=== PATIENT | male | born 1945 | race Caucasian/White ===

== ENCOUNTER 2018-10-28 15:13 | Observation (INO) ==
[2018-10-28] MEDS ORDERED: NS 1,000 ML IV ONE ×2 (15:50→16:33)
[2018-10-28 16:50] LABS: BASO# 0.04 X1000 (0.0-0.2); BASO% 0.3 % (0.0-0.8); EOS# 0.13 X1000 (0.0-0.7); EOS% 1.1 % (0.0-10.0); HEMATOCRIT 40.1 % (42.0-52.0); HEMOGLOBIN 13.2 g/dL (14.0-18.0); IMM GRAN# 0.05 X1000 (0.0-0.04); IMM GRAN% 0.4 % (0.0-0.5); LYMPH# 1.39 X1000 (1.2-3.4); LYMPH% 11.6 % (20.5-51.1); MCH 27.3 PG (27-31); MCHC 32.9 g/dL (33-37); MONO# 1.64 X1000 (0.11-0.59); MONO% 13.7 % (1.7-9.3); NEUT# 8.69 X1000 (1.4-6.5); NEUT% 72.9 % (42.2-75.2); PLT 208 X1000 (130-400); RBC 4.83 XMIL (4.7-6.1); WBC 11.94 X1000 (4.8-10.8)
[2018-10-28 17:02] LABS: BILIRUBIN URINE 2+ (NEGATIVE); BLOOD URINE TRACE (NEGATIVE); GLUCOSE URINE NEGATIVE (NEGATIVE); KETONE URINE 1+(Small) mg/dL (NEGATIVE); LEUKOCYTES URINE 1+ (NEGATIVE); NITRITE URINE POSITIVE (NEGATIVE); PH URINE 6.5; PROTEIN URINE 2+(100 mg/dL) mg/dL (NEGATIVE); UROBILINOGEN URINE 4 mg/dL
[2018-10-28 17:03] LABS: CLARITY VERY CLOUDY (CLEAR); COLOR YELLOW
[2018-10-28 17:04] LABS: URINE BACTERIA 2+ /HFP; URINE EPITHELIAL CELLS >10 /HPF (<10); URINE RBC <10 /HPF (<10); URINE YEAST NONE SEEN /HPF
[2018-10-28 17:05] LABS: ALBUMIN 3.8 g/dL (3.5-5.0); CALCIUM 8.4 mg/dL (8.8-10.2); CREATININE 2.1 mg/dL (0.7-1.2); POTASSIUM 4.2 mmol/L (3.5-5.1); TOTAL BILIRUBIN 1.2 mg/dL (0.20-1.00); TOTAL PROTEIN 6.4 g/dL (6.3-8.3); URINE CAST WAXY PRESENT /LPF; URINE CRYSTAL NONE SEEN /HPF; URINE SOURCE CLEAN CATCH
--- NOTE | 2018-10-28 18:11 | Diag Imaging Result Doc PS360 ---
EXAM: US ABDOMEN-COMPLETE - 10/28/2018 HISTORY: pain TECHNIQUE: Ultrasound abdomen COMPARISON: None. FINDINGS: There are no abnormalities of the liver or spleen identified. There is no ascites seen. The gallbladder is visualized and demonstrates no abnormalities. There is no evidence of gallstones. The technologist reports negative sonographic Lim's sign. The common bile duct is normal caliber at 4 mm. There are no abnormalities of the bilateral kidneys identified. The pancreas, abdominal aorta, and IVC are obscured by bowel gas artifacts. IMPRESSION: No visible abnormality. No evidence of gallstones. The pancreas, aorta, and IVC are obscured by bowel gas artifacts. Electronically signed by Luis Carlos Perez 10/28/2018 6:09 PM
--- NOTE | 2018-10-28 19:10 | PROVIDER DOCUMENTATION ---
This chart was entered by Sha Figueroa Scribe, acting as scribe for Aris Dahl MD. HPI-Abdominal Pain/GI Problem - History of Present Illness-ABD Nature of Presenting Problems: Patient is a 73 year old white male with history of diabetes and CAD (S/P ME,stents) who presented today with RLQ abdomen pain. <Lucas Peoples - Last Filed: 10/28/18 21:06> - General Source: patient - History of Present Illness-ABD Nature of Presenting Problems: Pt is a 73 y/o F presents to the ED with RLQ pain. Pt says he has been helping his brother with some electrical work and thinks he has pulled a muscle. Pain Radiation: reports: RLQ Quality of Pain: reports: aching Severity in ED: reports: mild Onset/Duration: reports: 2 days ago Timing: reports: still present Activities at Onset: reports: moderate activity Exposure to sick contacts?: No Modifying Factors: improves with: nothing Associated Symptoms: denies: cough, fever/chills, nausea Last BM: unsure <Aris Dahl - Last Filed: 10/29/18 13:45> - General Chief Complaint: Abdominal Pain Stated Complaint: AB PAIN Time Seen by Provider: 10/28/18 15:50 Allergies/Adverse Reactions: Patient Allergies Allergy/AdvReac Type Severity Reaction Status Date / Time No Known Allergies Allergy Verified 10/28/18 15:38 Home Medications: Home Medication List Medication Instructions Recorded Confirmed Last Taken Type Aspirin 81 mg PO DAILY 10/28/18 10/28/18 Unknown History Atorvastatin Calcium 80 mg PO DAILY 10/28/18 10/28/18 Unknown History Clopidogrel Bisulfate [Clopidogrel] 75 mg PO DAILY 10/28/18 10/28/18 Unknown History Lisinopril 5 mg PO DAILY 10/28/18 10/28/18 Unknown History Metoprolol Tartrate 50 mg PO BID 10/28/18 10/28/18 Unknown History Pyridostigmine [Mestinon] 30 mg PO 4XDAY 10/28/18 10/28/18 Unknown History Review of Systems - Adult - REVIEW OF SYSTEMS - ADULT Constitutional: denies: chills, fever Eyes: reports: no symptoms reported Ears, Nose, Mouth & Throat: reports: no symptoms reported Cardiovascular: reports: no symptoms reported Respiratory: denies: cough, shortness of breath, wheezing Gastrointestinal: reports: abdominal pain. denies: constipation, diarrhea, nausea, vomiting Genitourinary: denies: dysuria, discharge Musculoskeletal: denies: back pain, neck pain Integumentary: reports: no symptoms reported Neurological: denies: dizziness/vertigo, headache/migraines Psychiatric: reports: no symptoms reported Endocrine: reports: no symptoms reported Hematologic/Lymphatic: reports: no symptoms reported Allergic/Immunologic: reports: no symptoms reported All Other Systems: Reviewed and Negative <Aris Dahl - Last Filed: 10/29/18 13:45> Past History - Adult - PAST MEDICAL HISTORY-ADULT Review of Records: reports: Old Records Reviewed, Nursing Assessment Review, M edications Reviewed - SOCIAL HISTORY Smoking: non-smoker, quit greater than 1 year Substance Use: none/never Living Situation: family <Aris Dahl - Last Filed: 10/29/18 13:45> Physical Exam-General - PHYSICAL EXAM-ADULT Initial Vital Signs Reviewed: Yes - CONSTITUTIONAL General Appearance: appears well, alert, no apparent distress - EYES Eyes: PERRL/EOMI, pink conjunctivae - HEAD, EARS, NOSE, MOUTH & THROAT HENMT: moist mucous membranes, normal ENT inspection, pharynx normal - NECK Neck: non-tender, full range of motion, supple, normal inspection - RESPIRATORY Respiratory: lungs clear, normal breath sounds, no pleuratic chest pain, no respiratory distress, no accessory muscle use - CARDIOVASCULAR Cardiovascular: normal peripheral pulses, regular rate, rhythm - GASTROINTESTINAL (ABDOMEN) Abdominal Exam: normal bowel sounds, soft, tenderness (RLQ), other (mulitple small subcutaneous hematomas) - MUSCULOSKELETAL Back Exam: normal inspection, no CVA tenderness, no vertebral tenderness Extremity: normal range of motion, non-tender, normal gait, normal inspection - SKIN Integumentary: normal color, normal turgor, warm/dry - NEUROLOGIC Neurologic: grossly normal, no motor/sensory deficits - PSYCHIATRIC Psych/Mental Status: normal mood/affect, normal thought content, normal thought process, oriented x 3 <Aris Dahl - Last Filed: 10/29/18 13:45> Progress - PLAN OF CARE/RESULTS Progress/Plan/Lab Results: Vital Signs - 8 hr 10/28/18 15:19 10/28/18 15:43 Temperature 97.6 F Pulse Rate 81 93 H Respiratory Rate 18 18 Blood Pressure 88/61 126/62 O2 Sat by Pulse Oximetry 98 97 Laboratory Results - last 24 hr 10/28/18 10/28/18 10/28/18 16:45 16:45 16:45 WBC 11.94 H RBC 4.83 Hgb 13.2 L Hct 40.1 L MCV 83.0 MCH 27.3 MCHC 32.9 L RDW Std Deviation 15.0 H Plt Count 208 MPV 10.0 Immature Gran % (Auto) 0.4 Neut % (Auto) 72.9 Lymph % (Auto) 11.[address] [place] % (Auto) 13.7 H Eos % (Auto) 1.1 Baso % (Auto) 0.3 Immature Gran # (Auto) 0.05 H Neut # (Auto) 8.69 H Lymph # (Auto) 1.39 [place] # (Auto) 1.64 H Eos # (Auto) 0.13 Baso # (Auto) 0.04 Sodium 135 L Potassium 4.2 Chloride 102 Carbon Dioxide 24 L Anion Gap 9 BUN 21 Creatinine 2.1 H Estimated GFR/1.73 m2 31 BUN/Creatinine Ratio 10 Glucose 99 Calculated Osmolality 273 Calcium 8.4 L Total Bilirubin 1.20 H AST 17 ALT 12 Alkaline Phosphatase 68 Total Protein 6.4 Albumin 3.8 Globulin 3.0 Albumin/Globulin Ratio 1.0 Amylase 61 Lipase 62 H Urine Source Urine Color Urine Clarity Urine pH Ur Specific [place] Urine Protein Urine Ketones Urine Blood Urine Nitrite Urine Bilirubin Urine Urobilinogen Urine Microscopic RBC Urine WBC Urine Microscopic WBC Ur Epithelial Cells Urine Crystals Urine Bacteria Urine Casts Urine Yeast Urine Glucose 10/28/18 16:45 WBC RBC Hgb Hct MCV MCH MCHC RDW Std Deviation Plt Count MPV Immature Gran % (Auto) Neut % (Auto) Lymph % (Auto) [place] % (Auto) Eos % (Auto) Baso % (Auto) Immature Gran # (Auto) Neut # (Auto) Lymph # (Auto) [place] # (Auto) Eos # (Auto) Baso # (Auto) Sodium Potassium Chloride Carbon Dioxide Anion Gap BUN Creatinine Estimated GFR/1.73 m2 BUN/Creatinine Ratio Glucose Calculated Osmolality Calcium Total Bilirubin AST ALT Alkaline Phosphatase Total Protein Albumin Globulin Albumin/Globulin Ratio Amylase Lipase Urine Source CLEAN CATCH Urine Color YELLOW Urine Clarity VERY CLOUDY A Urine pH 6.5 Ur Specific [place] 1.020 Urine Protein 2+(100 mg/dL) A Urine Ketones 1+(Small) A Urine Blood TRACE Urine Nitrite POSITIVE A Urine Bilirubin 2+ A Urine Urobilinogen 4 Urine Microscopic RBC <10 Urine WBC 1+ A Urine Microscopic WBC 10-20 A Ur Epithelial Cells >10 A Urine Crystals NONE SEEN Urine Bacteria 2+ Urine Casts WAXY PRESENT Urine Yeast NONE SEEN Urine Glucose NEGATIVE Orders Category Date Time Status Nursing- MD Consult Request ROUTINE Care 10/28/18 20:27 Active Saline Loc DIRECTED Care 10/28/18 15:18 Active Physician/Provider Consults Routine Cons 10/28/18 20:27 Ordered NPO Diet 10/28/18 15:[address] ABD/PELVIS W/ORAL CONT ONLY [CT] Stat Exams 10/28/18 17:14 Completed US ABDOMEN-COMPLETE [US] Stat Exams 10/28/18 17:20 Completed AMYLASE [CHEM] Stat Lab 10/28/18 16:45 Completed CBC WITH ELECTRONIC DIFF [HEME] Stat Lab 10/28/18 16:45 Completed COMPREHENSIVE METABOLIC PANEL [CHEM] Stat Lab 10/28/18 16:45 Completed LIPASE [CHEM] Stat Lab 10/28/18 16:[address] W/POSS RFLX CULT [URINALYSIS] Stat Lab 10/28/18 16:45 Completed URINE CULTURE [RM] Routine Lab 10/28/18 17:05 Ordered 0.9% Sodium Chloride Inj [Ns] 1,000 ml Med 10/28/18 15:50 Discontinued IV 999 mls/hr 0.9% Sodium Chloride Inj [Ns] 1,000 ml Med 10/28/18 16:33 Discontinued IV 999 mls/hr Piperacillin/Tazobactam [Zosyn] 3.375 gm Med 10/28/18 20:28 Active 0.9% Sodium Chloride Inj [Ns] 50 ml IV NOW Result Diagrams: 10/28/18 16:45 10/28/18 16:45 - REASSESSMENT Reassessment #1 Time Reassessed: 20:20 Status: improving Reassessment Comment: informed patient of acute appendicitis, patient is resting comfortable, - CONSULTS/PCP/HOSPITALIST Notification #1 *Consult/PCP/Hospitalist*: Dr. Bowman, surgeon technical education teacher Time Discussed: 20:25 Reason/Comments: admit to hospitalist service at [facility] Consult Disposition: Admit #2 Consult: Dr. Hankins,hospitalist Time Discussed: 20:45 Consult Disposition: Admit <Lucas Peoples - Last Filed: 10/28/18 21:06> - PLAN OF CARE/RESULTS Progress/Plan/Lab Results: Vital Signs - 8 hr 10/28/18 15:19 10/28/18 15:43 Temperature 97.6 F Pulse Rate 81 93 H Respiratory Rate 18 18 Blood Pressure 88/61 126/62 O2 Sat by Pulse Oximetry 98 97 Orders Category Date Time Status Saline Loc DIRECTED Care 10/28/18 15:18 Active NPO Diet 10/28/18 15:18 Active AMYLASE [CHEM] Stat Lab 10/28/18 15:18 Ordered CBC WITH ELECTRONIC DIFF [HEME] Stat Lab 10/28/18 15:18 Ordered COMPREHENSIVE METABOLIC PANEL [CHEM] Stat Lab 10/28/18 15:30 Ordered LIPASE [CHEM] Stat Lab 10/28/18 15:[address] W/POSS RFLX CULT [URINALYSIS] Stat Lab 10/28/18 15:18 Uncollected 0.9% Sodium Chloride Inj [Ns] 1,000 ml Med 10/28/18 15:50 Active IV 999 mls/hr Result Diagrams: 10/29/18 06:05 10/29/18 06:05 - CHANGE OF SHIFT REPORT (ED Provider) 1 Report Given and Care Transferred to:: Dr. Peoples Time of Transfer: 19:00 <Aris Dahl - Last Filed: 10/29/18 13:45> Departure - Departure Date of Disposition Decision: 10/28/18 Time of Disposition Decision: 21:07 Certified Medical Emergency: Emergent - Critical Care Note This patient required my direct & personal management of CC.: No <Lucas Peoples - Last Filed: 10/28/18 21:06> <Aris Dahl - Last Filed: 10/29/18 13:45> - Departure DIAGNOSIS: Acute appendicitis Qualifiers: Acute appendicitis type: unspecified acute appendicitis type Qualified Code(s): K35.80 - Unspecified acute appendicitis Disposition: ADMITTED INPATIENT 09 Condition: Stable Attestation - Physician/ ROSLYN Attestation Patient care was provided by Advanced Practice Provider:: No The physician spent face to face time with patient:: Yes Advanced Practice Provider documentation review:: Supervising physician onsite and consulted in the evaluation and care of this patient. The physician did have a face to face encounter with the patient. <Lucas Peoples - Last Filed: 10/28/18 21:06> This chart was documented by the indicated scribe, (Sha Figueroa, Catie) and accurately reflects the services I performed and decisions made by me, Aris Dahl MD, as attested by the provider's signature.
--- NOTE | 2018-10-28 20:13 | Diag Imaging Result Doc PS360 ---
EXAM: CT ABD/PELVIS W/ORAL CONT ONLY - 10/28/2018 HISTORY: pain TECHNIQUE: CT abdomen/pelvis with oral contrast only. No intravenous contrast administered per request of the referring provider. COMPARISON: None. FINDINGS: There is some limitation of detail due to the lack of administered intravenous contrast. There are no substantial abnormalities of the liver, spleen, adrenal glands, or pancreas identified. There is a possible tiny calcified gallstone in the dependent portion of gallbladder. There is no pericholecystic inflammation. There is is no renal stone or hydronephrosis identified. The distal aorta is minimally ectatic at 2 cm. There are atherosclerotic calcifications noted. There are lower lumbar spine degenerative changes noted. The right colon is tortuous, with the cecum located at the anterior right mid abdomen. There is a tubular structure which extends anterior medially from the cecum and measures 1.2 cm in diameter. This is suspicious for an inflamed appendix. There is hazy inflammation of surrounding fat. There is no abscess identified. There is no free air. There is no evidence of bowel obstruction. There are fat-containing bilateral inguinal hernias. There are prostatic calcifications noted. IMPRESSION: Tortuous right colon, with the cecum located at the anterior right midabdomen. Findings which are consistent with acute appendicitis. This exam was performed using automated exposure control, adjustment of mA or kV according to patient size, and/or use of iterative reconstruction technique. Electronically signed by Luis Carlos Perez 10/28/2018 8:11 PM
[2018-10-28] MEDS ORDERED: ZOSYN 3.375 GM in NS 50 ML IV ONE (20:28)
--- NOTE | 2018-10-28 21:52 | GENERAL SURGERY CONSULTATION ---
DATE: 10/28/2018 HISTORY OF PRESENT ILLNESS: A 73-year-old gentleman who has had vague abdominal discomfort for the last 3 days. It became worse today, localized in the right anterior abdomen. He came to the ER where CT scan showed acute appendicitis. His coronary disease history is that he had a stent placed 2 to 3 years ago for what he says was an WI. He does take aspirin and Plavix. Never had a colonoscopy, but otherwise bowel function has been normal. MEDICAL HISTORY: Diabetes, hypertension, coronary disease. SURGICAL HISTORY: No abdominal operations, but he was had coronary stents. SOCIAL HISTORY: No current tobacco, alcohol or drugs. He is , lives in [place]. He is retired. FAMILY HISTORY: Reviewed and negative for cancer. REVIEW OF SYSTEMS: Ten-point negative. PHYSICAL EXAMINATION: Vitals: No fevers. Pulse 93, blood pressure 126/62, oxygen 97%. General: He is alert. HEENT: No scleral icterus. No cervical mass. Cardiovascular: Normal rate. Pulmonary: No increased work of breathing. Abdomen: Soft. He is tender in the right lower quadrant, but no partha peritonitis. Integument: Warm and dry. Psychiatric: Appropriate affect. Neurologic: No gross deficits. Lymphatic: No cervical, axillary or inguinal adenopathy. LABORATORY DATA: White count 11, hematocrit 40, platelets 208,000. Creatinine is 2.1, bilirubin is 1.20. AST, ALT, and alkaline phosphatase are normal. Lipase is mildly elevated. Urinalysis does show nitrates. ASSESSMENT/PLAN: A 73-year-old gentleman with acute appendicitis. No evidence of rupture on CT scan or on his exam. I discussed the risk of bleeding, which is higher in the setting of aspirin and Plavix, infection, conversion open, perioperative complications including cardiopulmonary issues. We will we transfer him [facility]. He is going to be ultimately admitted to the hospitalist to help with assistance of his other medical issues, but will plan for laparoscopic appendectomy this evening. He has received Zosyn. I have talked to both he and his family. cc: Juanita Bowman MD
[2018-10-28] MEDS ORDERED: LTA KIT ONE (22:28)
[2018-10-28] MEDS ORDERED: ROBINUL ONE (22:30)
[2018-10-28] MEDS ORDERED: DIPRIVAN 1% ONE (22:30)
[2018-10-28] MEDS ORDERED: XYLOCAINE-MPF 2% ONE (22:30)
[2018-10-28] MEDS ORDERED: MARCAINE 0.25% PF/EPI 1:200,000 ONE (22:57)
[2018-10-28] MEDS ORDERED: LR 1,000 ML ONE (22:57)
[2018-10-28] MEDS ORDERED: ZOFRAN ONE (22:58)
[2018-10-28] MEDS ORDERED: DECADRON ONE (22:58)
[2018-10-28] MEDS ORDERED: TYLENOL PO PRN (23:00)
[2018-10-28] MEDS ORDERED: NS 1,000 ML IV SCH (23:00)
[2018-10-29] MEDS ORDERED: LR 1,000 ML ONE (00:27)
[2018-10-29] MEDS ORDERED: NORCO-7.5 PO PRN (00:53)
[2018-10-29] MEDS: ZOFRAN IV PRN ×2 (01:03→22:47)
[2018-10-29] MEDS: MORPHINE IV PRN ×4 (01:21→11:47)
[2018-10-29] MEDS: ZOSYN 2.25 GM in NS 50 ML IV SCH ×4 (03:33→20:07)
--- NOTE | 2018-10-29 06:05 | HISTORY AND PHYSICAL ---
CHIEF COMPLAINT: Abdominal pain. HISTORY OF PRESENT ILLNESS: This is a 73-year-old male who went to [facility] after having right lower quadrant abdominal pain. He has been working on some electrical work, thought he had pulled a muscle. It has been hurting for around [address] report that was done in the emergency room showed a tortuous right colon with the cecum located at the anterior right mid abdomen, findings which are consistent with acute appendicitis. Dr. Bowman was consulted and he will be admitted to [facility] for surgical intervention. PAST MEDICAL HISTORY: Hypertension, hyperlipidemia, diabetes type 2 now insulin dependent, coronary artery disease status post cardiac stenting, apparently double vision for which he takes Mestinon. He states that he has never been diagnosed with myasthenia gravis or told any other names for why he has double vision. He just takes the medicine. SURGICAL INTERVENTION: Cardiac stenting, right appendectomy tonight by Dr. Bowman. SOCIAL HISTORY: . Lives in [facility]. No tobacco, alcohol or illicit drugs. Did smoke he said but quit roughly 50 years ago. FAMILY HISTORY: Positive for coronary artery disease in both sides of his family in first-degree relatives. ALLERGIES: No known drug allergies. HOME MEDICATION: I believe the patient takes aspirin 81 mg p.o. daily, atorvastatin 80 mg p.o. daily, Plavix 75 mg p.o. daily, lisinopril 5 mg p.o. daily, metoprolol 50 mg p.o. b.i.d, and Mestinon 30 mg p.o. 4 times a day. He also takes insulin but I am unsure what dosage. REVIEW OF SYSTEMS: Fourteen-point review of systems conducted with the patient. Pertinent positives listed above in the HPI. All other systems reviewed and found to be negative. PHYSICAL EXAMINATION: VITAL SIGNS: Temperature 98.6, pulse 77, respirations 20, blood pressure 137/68, oxygen saturation 100% on room air. GENERAL: Pleasant 73-year-old male lying in the medical floor bed after having surgical intervention, is alert and oriented times 3, somewhat groggy, a poor historian, but he answers all questions appropriately, is in no acute distress. HEENT: Head is atraumatic, normocephalic. Pupils equal, round, reactive to light. Extraocular eye movement is intact. Sclerae are anicteric. Conjunctiva is pink. Oral mucosa is mildly dry. NECK: Supple. No JVD. No thyromegaly. Trachea is midline. No cervical lymphadenopathy. CARDIAC: S1, S2 appreciated. No murmurs, gallops, rubs. LUNGS: Clear to auscultation bilaterally. No rhonchi, wheeze, rales. Symmetric rise and fall with respirations. ABDOMEN: Soft, nondistended. Tender in the right lower quadrant, the area of surgical intervention. Laparoscopic sites clean, dry and intact. IVA drain is intact and draining. EXTREMITIES: No clubbing, cyanosis or edema. Two-plus pedal pulses bilaterally. GENITOURINARY: No bladder distention. Patient voids. Otherwise deferred. NEUROLOGICAL: Alert and oriented times 3. Cranial nerves 2 through 12 grossly intact. Patient did complain of some mild double vision after surgery but states that is why he takes the Mestinon and it happens from time to time. DIAGNOSTIC DATA: A CT of the abdomen showed acute appendicitis. Abdominal ultrasound of the right upper quadrant showed no visible abnormalities. The pancreas, aorta and IVC were obscured with bowel gas artifact. LABORATORY DATA: WBC 11.94. Hemoglobin 13.2. Hematocrit 40.1. Platelet count 208. Sodium 135. Potassium 4.2. Chloride 102. Carbon dioxide 24. BUN 21. Creatinine 2.1. Glucose 99. Urine was a contaminated sample. However, it did have trace blood. Cultures are pending. ASSESSMENT AND PLAN: 1. Acute appendicitis, status post appendectomy by Dr. Bowman. We will continue pain management. He received Zosyn before surgery. Continue lactated Ringer's at 75 mL an hour per Dr. Bowman. 2. Hyperlipidemia. Continue atorvastatin. 3. Hypertension. Patient states that he sees a kidney specialist. However, he does not believe he has kidney disease. We will continue lisinopril despite his creatinine being 2.1. I believe that this is likely his baseline. We will give fluids, however, as he does seem mildly fluid volume depleted. 4. Fluid volume depletion. He was given fluids in the emergency room. We will continue gentle fluid hydration. 5. Diabetes mellitus type 2, now insulin dependent. I am unsure what the patient takes at home for insulin coverage. We will give low-dose sliding scale at this time and continue to monitor. Further recommendations per patient clinical course. Dictated by EDGAR Piper for Keven Hankins MD I have performed a face to face diagnostic evaluation. Labs/ Xrays- reviewed. Exam- Chest- clear, Abd- RLQ abdominal tenderness. A/P- Acute Appendicitis- Admit, NPO, pain control. General surgery consult. Dr. Hankins cc: EDGAR Piper MD Dr. Gillespie MTDD
--- NOTE | 2018-10-29 06:08 | OPERATIVE NOTE ---
PROCEDURE DATE: 10/29/2018 PREOPERATIVE DIAGNOSES: 1. Acute appendicitis. 2. Umbilical hernia incarcerated. POSTOPERATIVE DIAGNOSES: 1. Acute appendicitis. 2. Umbilical hernia incarcerated. PROCEDURES PERFORMED: 1. Laparoscopic appendectomy. 2. Primary repair of an incarcerated umbilical hernia. 3. Rodney drain placed in the right lower quadrant adjacent to the appendix staple line. ESTIMATED BLOOD LOSS: 10 mL. SPECIMENS: 1. Appendix. 2. Hernia contents. ANESTHESIA: General. INDICATIONS: A 73-year-old gentleman who has had 3 days of abdominal discomfort. CT scan at [facility] showed acute appendicitis. OPERATIVE FINDINGS: 1. There was an incarcerated umbilical hernia containing omental fat. 2. There was a densely inflamed appendix encased in the small bowel of the cecum which was located in the right upper quadrant. There was focal perforation at the base, but this was contained with no obvious purulence within the abdomen. DESCRIPTION OF PROCEDURE: Risks, benefits and alternatives were discussed with the patient and consented to the procedure. He was seen preoperatively. Surgical site was confirmed. He was taken to the operating room and placed in the supine position where general anesthesia was induced. Caba catheter was placed. Hair was removed with clippers. Abdomen was prepped with chlorhexidine solution and draped in a usual fashion. After time-out, we inverted the umbilical skin, and made incision along this dissecting out the hernia sac. It was incarcerated. We had to excise it, and this allowed us to gain entry into the abdomen. This dissection took significantly longer than the usual laparoscopic entry into the abdomen. A 12 mm Dean trocar was placed. We insufflated the abdomen, confirmed there was no injury to underlying structures and there was not. We then placed a 5 mm trocar in the suprapubic location, one in the left lower quadrant lateral. Inferior epigastric site was ultimately up sized to a 12 mm trocar. Initially, we had him in Trendelenburg position, but realizing that the cecum was quite mobile in the right upper quadrant, we had to place him in reverse Trendelenburg to gain access. We began mobilizing the small bowel, and the omentum encasing the appendix off this bluntly protecting the small bowel but it was densely adherent. There was no injury to the small bowel. Once we had fully identified the length of the appendix, the LigaSure device was used to divide the mesoappendix which was very thickened and inflamed. We carried this up to the base of the cecum at which point we identified a focal perforation here that was contained. There was no significant purulence noted in this location. A 45 mm gold load stapler was used to divide the base of the appendix. There was good closure here. The base did appear to be healthy, but given the dense inflammation, we placed a Rodney drain in the right lower quadrant through a lateral stab incision on the right, and secured with a nylon suture. The appendix was placed in EndoCatch bag. We copiously irrigated, and noted hemostasis. There was no injury to the surrounding structures. We then removed the trocars under direct visualization and confirmed hemostasis. We deflated the abdomen, and brought the appendix out through the umbilical hernia defect. We mobilized the fascia back to healthy fascia, and closed it along the midline in an interrupted fashion. Again, this repair took significantly longer than the usual entry and closure of the abdomen for the laparoscopic procedure. We tacked down the umbilical stalk re-creating this. We closed the skin with 4-0 Monocryl. Dermabond was applied. Counts were correct. He was woken and transferred to recovery. I spoke with family. Caba catheter was removed at the end of the case. cc: Juanita Bowman MD
[2018-10-29 06:42] LABS: BASO# 0.01 X1000 (0.0-0.2); BASO% 0.1 % (0.0-0.8); EOS# 0.01 X1000 (0.0-0.7); EOS% 0.1 % (0.0-10.0); HEMATOCRIT 43.5 % (42.0-52.0); HEMOGLOBIN 14.2 g/dL (14.0-18.0); IMM GRAN# 0.03 X1000 (0.0-0.04); IMM GRAN% 0.3 % (0.0-0.5); LYMPH# 0.37 X1000 (1.2-3.4); LYMPH% 3.8 % (20.5-51.1); MCH 26.9 PG (27-31); MCHC 32.6 g/dL (33-37); MCV 82.5 FL (81-99); MONO# 0.41 X1000 (0.11-0.59); MONO% 4.2 % (1.7-9.3); MPV 10.3 FL (7.4-10.4); NEUT# 8.86 X1000 (1.4-6.5); NEUT% 91.5 % (42.2-75.2); PLT 214 X1000 (130-400); RBC 5.27 XMIL (4.7-6.1); RDW 15.2 % (11.5-14.5); WBC 9.69 X1000 (4.8-10.8)
[2018-10-29 07:14] LABS: CALCIUM 9.3 mg/dL (8.8-10.2); CREATININE 1.5 mg/dL (0.7-1.2)
[2018-10-29 07:36] LABS: BANDS 8 % (0-1); LYMPHS 2 % (21-51); MONO 4 % (1-9); SEGS 83 % (42-75)
[2018-10-29] MEDS: HUMALOG SUBQ SCH ×4 (07:36→21:39)
[2018-10-29] MEDS: LOPRESSOR PO SCH ×2 (08:45→20:08)
[2018-10-29] MEDS: ASPIRIN PO SCH (08:45)
[2018-10-29] MEDS: LIPITOR PO SCH (08:45)
[2018-10-29] MEDS: MESTINON PO SCH ×4 (08:45→20:08)
[2018-10-29] MEDS: PERIDEX MT SCH ×2 (08:46→20:08)
[2018-10-29] MEDS: PRINIVIL PO SCH (08:47)
[2018-10-29] MEDS ORDERED: PLAVIX PO SCH (09:00)
--- NOTE | 2018-10-29 11:55 | PROGRESS NOTE ---
DATE: 10/29/2018 SUBJECTIVE: The patient reports feeling mild pain around the surgical area. Denies any fever or chills. OBJECTIVE: Vital Signs: Temperature 98.2 degrees, heart rate 95, respiratory rate 17, blood pressure 131/62, O2 saturation 97% on room air. General: This is a 73-year-old male, lying in bed in no acute distress. Cardiovascular: S1, S2 heard. No murmurs, gallops, or rubs. Regular rate and rhythm. Respiratory: Clear bilaterally to auscultation. No work of breathing or using accessory muscles. Abdomen: Soft, nondistended, and tender to palpation in the right lower quadrant. The area of surgical intervention with laparoscopic sites clean, dry, and intact, and IVA drain intact and draining. Neurological: The patient is alert and oriented x3. Moves all 4 extremities. LABORATORY DATA: White cell count 9.69, hemoglobin 14.2, hematocrit 43.5, platelets 214. BMP shows creatinine 1.5 and glucose 187. ASSESSMENT AND PLAN: 1. Acute appendicitis, status post appendectomy. Dr. Bowman following this patient. The patient has been receiving Zosyn before surgery, and the patient is on intravenous fluids. 2. Acute kidney injury. I do not know if this patient has renal problems. What we know is that on admission, the creatinine was 2.1, and today it is 1.5. Considering if there is any improvement, will continue with intravenous fluids, and will continue to monitor BMP daily. 3. Diabetes mellitus type 2. Will continue with sliding scale insulin and Accu-Cheks before meals and also at bedtime. 4. Hyperlipidemia. Will continue with atorvastatin. 5. Hypertension. Blood pressure is under control. Will continue with the same management. 6. Disposition. The patient will remain in the hospital until the patient is cleared by General Surgery. cc: Jose Carmona MD
[2018-10-29] MEDS: LR 1,000 ML IV SCH (14:52)
--- NOTE | 2018-10-29 16:38 | GENERAL SURGERY PROGRESS NOTE ---
DATE: 10/29/2018 SUBJECTIVE: Doing well. No fevers, no tachycardia. OBJECTIVE: Abdomen is soft. Incision intact. He is passing some gas, voiding. LABORATORY DATA: White count is normal. Hematocrit 43, creatinine is 1.5. ASSESSMENT AND PLAN: This is a 73-year-old gentleman status post laparoscopic appendectomy, doing well. A little slow. We will monitor him with his diet today. Keep him on some fluids. He was quite dehydrated coming in and he is on Zosyn given the focal perforation that he had. His drain is clear. We will follow him closely. Plan maybe home this evening or tomorrow with his drain. cc: Juanita Bowman MD
[2018-10-30] MEDS: ZOSYN 2.25 GM in NS 50 ML IV SCH ×4 (03:40→23:33)
[2018-10-30] MEDS: ZOFRAN IV PRN ×4 (06:45→20:44)
[2018-10-30 07:01] LABS: BASO# 0.02 X1000 (0.0-0.2); BASO% 0.1 % (0.0-0.8); EOS# 0.08 X1000 (0.0-0.7); EOS% 0.5 % (0.0-10.0); HEMATOCRIT 46.1 % (42.0-52.0); IMM GRAN# 0.04 X1000 (0.0-0.04); IMM GRAN% 0.3 % (0.0-0.5); LYMPH# 1.11 X1000 (1.2-3.4); LYMPH% 7.5 % (20.5-51.1); MCH 26.8 PG (27-31); MCHC 32.5 g/dL (33-37); MCV 82.5 FL (81-99); MONO# 1.88 X1000 (0.11-0.59); MONO% 12.8 % (1.7-9.3); MPV 10.3 FL (7.4-10.4); NEUT# 11.59 X1000 (1.4-6.5); NEUT% 78.8 % (42.2-75.2); PLT 304 X1000 (130-400); RBC 5.59 XMIL (4.7-6.1); RDW 15.5 % (11.5-14.5); WBC 14.72 X1000 (4.8-10.8)
[2018-10-30 07:03] LABS: CALCIUM 9.3 mg/dL (8.8-10.2); CREATININE 1.3 mg/dL (0.7-1.2); POTASSIUM 4.3 mmol/L (3.5-5.1)
[2018-10-30] MEDS: HUMALOG SUBQ SCH ×4 (07:39→23:35)
[2018-10-30] MEDS: PRINIVIL PO SCH (09:44)
[2018-10-30] MEDS: LR 1,000 ML IV SCH ×2 (09:44→16:39)
[2018-10-30] MEDS: PERIDEX MT SCH ×2 (09:44→23:36)
[2018-10-30] MEDS: ASPIRIN PO SCH (09:45)
[2018-10-30] MEDS: LOPRESSOR PO SCH ×2 (09:45→23:36)
[2018-10-30] MEDS: MESTINON PO SCH ×4 (09:45→23:36)
[2018-10-30] MEDS: LIPITOR PO SCH (09:45)
[2018-10-30 10:26] LABS: HEMOGLOBIN A1C 5.9 % (4.8-6.0)
[2018-10-30] MEDS: PLAVIX PO SCH (11:02)
[2018-10-30] MEDS: LOVENOX SUBQ SCH (11:02)
--- NOTE | 2018-10-30 13:46 | GENERAL SURGERY PROGRESS NOTE ---
DATE: 10/30/2018 SUBJECTIVE: Some nausea overnight, vomiting even after a large dinner. There are no fevers, no tachycardia. Feels better this morning, but he has not passed some much as far as gas. OBJECTIVE: No tachycardia. Blood pressure 131/67. Abdomen is soft. Incision intact. IVA drain serosanguineous. LABORATORY DATA: White count this morning is 14, hematocrit 46 creatinine is down to 1.3, glucose is 204. ASSESSMENT/PLAN: 73-year-old gentleman status post appendectomy. We will monitor him closely. Appendix did have focal perforation at the base. Drain is clear. No fevers. We will monitor him. He is on antibiotics. Given his nausea last night. I have encouraged him go slow. We will keep him on IV fluids. cc: Juanita Bowman MD
[2018-10-31] MEDS: ZOFRAN IV PRN (00:15)
[2018-10-31] MEDS: LR 1,000 ML IV SCH (01:07)
--- NOTE | 2018-10-31 04:10 | PROGRESS NOTE ---
DATE: 10/30/2018 SUBJECTIVE: The patient states that he was nauseous and had several episodes of emesis overnight. He states that he ate too much during dinner last night. OBJECTIVE: Vital Signs: Temperature 98 degrees, blood pressure 131/82, heart rate 83, respirations 19, O2 saturation 99% on room air. General: This is an elderly male sitting in a chair in no acute distress. Heart: S1, S2 normal. Regular rate and rhythm. Lungs: Clear to auscultation bilaterally. No wheezing. No rales. No rhonchi. Abdomen: Positive bowel sounds. Soft, nontender, nondistended. Extremities: No edema, no cyanosis. Neurologic: The patient is alert and oriented x3. LABS: White blood cell count 14, platelets 304,000. Sodium 140, potassium 4.3, chloride 103, BUN 27, creatinine 1.3. ASSESSMENT AND PLAN: 1. Nausea with vomiting. The patient has been advised to eat small amounts as tolerated. 2. Status post laparoscopic appendectomy with primary repair of an incarcerated umbilical hernia. Management as per the general surgeon. 3. Acute kidney injury, improved. Continue with intravenous fluids. 4. Leukocytosis. The patient is afebrile. We will continue to monitor the white count closely. The patient is currently on the Zosyn. 5. Deep vein thrombosis prophylaxis. Continue on Lovenox. cc: Christine Hart MD
[2018-10-31] MEDS: ZOSYN 2.25 GM in NS 50 ML IV SCH ×3 (04:57→10:52)
[2018-10-31] MEDS: HUMALOG SUBQ SCH (06:55)
[2018-10-31 07:52] VITALS: BP 152/72
[2018-10-31 09:20] LABS: HEMATOCRIT 46.2 % (42.0-52.0); HEMOGLOBIN 14.8 g/dL (14.0-18.0); MCH 27.1 PG (27-31); MCV 84.6 FL (81-99); MPV 10.5 FL (7.4-10.4); RBC 5.46 XMIL (4.7-6.1); RDW 15.8 % (11.5-14.5); WBC 11.96 X1000 (4.8-10.8)
[2018-10-31] MEDS: MESTINON PO SCH (09:23)
[2018-10-31] MEDS: PLAVIX PO SCH (09:23)
[2018-10-31] MEDS: LOPRESSOR PO SCH (09:23)
[2018-10-31] MEDS: PERIDEX MT SCH (09:23)
[2018-10-31] MEDS: LIPITOR PO SCH (09:23)
[2018-10-31] MEDS: PRINIVIL PO SCH (09:23)
[2018-10-31] MEDS: ASPIRIN PO SCH (09:23)
[2018-10-31] MEDS: LOVENOX SUBQ SCH (09:25)
[2018-10-31 09:45] LABS: CALCIUM 8.7 mg/dL (8.8-10.2); CREATININE 1.2 mg/dL (0.7-1.2)
--- NOTE | 2018-10-31 19:43 | GENERAL SURGERY PROGRESS NOTE ---
DATE: 10/31/2018 SUBJECTIVE: Feeling much better. No fevers overnight. Vomiting is resolved. He is having bowel function ad tolerating a diet. Pain is controlled. OBJECTIVE: Incisions are intact. Abdomen is soft. IVA drain serosanguineous. White count is down to 11. Hematocrit is 46. Creatinine is 1.2. ASSESSMENT AND PLAN: A 73-year-old gentleman status post laparoscopic appendectomy. He did have a bit of an ileus. This seems to have resolved. He is tolerating a diet. He is okay to discharge from a surgical standpoint. I will see him later this week and remove his drain. Otherwise, he will continue on a soft diet, out of bed and ambulate as much as possible. cc: Juanita Bowman MD
--- NOTE | 2018-11-03 13:45 | DISCHARGE SUMMARY ---
ADMISSION DATE: 10/28/2018 DISCHARGE DATE: 10/31/2018 FINAL DISCHARGE DIAGNOSES: 1. Status post laparoscopic appendectomy with primary repair of incarcerated umbilical hernia. 2. Acute kidney injury. 3. Leukocytosis. 4. Hypertension. 5. Dyslipidemia. 6. Diabetes mellitus type 2. 7. Coronary artery disease status post cardiac stent. 8. Myasthenia gravis. CONSULTATIONS: General Surgery consultation with Dr. Bowman. PROCEDURES: Laparoscopic appendectomy with primary repair of an incarcerated umbilical hernia performed on 10/29/2018. HOSPITAL COURSE: Mr. Lonny cueto is a 73-year-old male with a history of multiple medical problems, who initially presented to the ER with a chief complaint of abdominal pain, as well as nausea and vomiting. In the ER, a CT of the abdomen and pelvis was done that revealed acute appendicitis, as well as torsion of the right colon. In light of these findings, the patient was admitted to the Hospitalist Service and General Surgery was consulted. Early the following morning, the patient was taken to the OR and underwent a laparoscopic appendectomy with primary repair of an incarcerated umbilical hernia. The patient did well postoperatively. He was treated with antibiotics throughout the hospitalization. He did have acute kidney injury, which improved with the administration of IV fluids. The patient continued to improve clinically and was noted to have a white blood cell count of 11 on the day of discharge. DISCHARGE MEDICATIONS: 1. Aspirin 81 mg p.o. daily. 2. Lipitor 80 mg p.o. at bedtime. 3. Plavix 75 mg oral daily. 4. Hollis 7.5/325 one tab oral every 6 hours p.r.n. for pain. 5. Lisinopril 5 mg oral daily. 6. Metoprolol 50 mg p.o. twice a day. 7. Mestinon 30 mg oral 4 times a day. DISCHARGE DIET: 1800 ADA diet, low-sodium diet. ACTIVITY: As tolerated. FOLLOWUP INSTRUCTIONS: The patient will need to follow up with Dr. Bowman as scheduled by his clinic. The patient will also need to follow up with his primary care physician in 1 week. cc: Christine Hart MD
== END 2018-10-31 10:57 | disposition home or self-care (01) ==
LOC: 4N 15:13 → P.ED 15:13 → SUATTDRO 21:21 → OBSVTOIN 21:21 → UNDODISIN 10-31 10:57
PROVIDERS: ADMIT Internal Medicine; ATTEND Emergency Medicine